=== PATIENT | female | born 1995 | race Caucasian/White ===

== ENCOUNTER 2018-08-16 22:20 | Emergency (ER) | payer OTHER ==
[2018-08-16] MEDS ORDERED: LORAZEPAM 2 MG/ML 10ML MDV 2 MG/ML VIAL IV PRN (22:27)
[2018-08-16] MEDS ORDERED: LABETALOL HYDROCHLORIDE 5 MG/ML SOL IV ONE (22:28)
[2018-08-16] MEDS ORDERED: SODIUM CHLORIDE 0.9% 1000ML 1,000 ML IV SCH (22:30)
[2018-08-16 22:36] VITALS: RESP 18
[2018-08-16 22:44] LABS: BASOPHILS % (AUTO) 1 % (0-3); EOSINOPHILS % (AUTO) 0 % (0-9); HEMATOCRIT 36 % (35-47); HEMOGLOBIN 12.2 gm/dl (12.0-15.5); LYMPHOCYTES % (AUTO) 28.3 % (10-50); MEAN CORPUSCULAR HEMOGLOBIN 28.1 pg (27.0-32.0); MEAN CORPUSCULAR HGB CONC 33.8 gm/dl (32.0-36.0); MEAN CORPUSCULAR VOLUME 83 fL (81-99); MONOCYTES % (AUTO) 8.5 % (0-12); NEUTROPHILS % (AUTO) 62.4 % (37-80)
[2018-08-16 22:52] LABS: CALCIUM 8.7 mg/dl (8.5-10.1); CARBON DIOXIDE 24.6 mEq/L (21-32); CREATININE 0.84 mg/dl (0.60-1.00); POTASSIUM 3.5 mMol/L (3.5-5.1)
[2018-08-16] MEDS ORDERED: LORAZEPAM 2 MG/ML SOL ONE (23:09)
[2018-08-17 01:08] VITALS: BP 125/94; PULSE 88; TEMP 98.2; O2SAT 98
== END 2018-08-17 00:40 | disposition home or self-care (01) | DRG 918 ==
LOC: ED 22:20
DX: T40.2X5A Adverse effect of other opioids, initial encounter (principal); R23.2 Flushing; T69.8XXA Other specified effects of reduced temperature, initial encounter
CPT/HCPCS: 36415; 80048; 85025; 96365; 96374; 99282; 99283; J2060